=== PATIENT | male | born 1995 | race Caucasian/White ===

== ENCOUNTER 2017-12-22 17:16 | Emergency (ER) | payer SELFPAY ==
[~2017-12-22] VITALS: Ht 190.5 cm; Wt 90.7 kg
[2017-12-22 18:06] VITALS: BP_SYST 132
== END 2017-12-22 18:29 | disposition home or self-care (01) ==
LOC: SED 17:16
DX: M79.652 Pain in left thigh (principal); M54.5 Low back pain; R03.0 Elevated blood-pressure reading, without diagnosis of hypertension
CPT/HCPCS: 99282